=== PATIENT | male | born 1970 | race Caucasian/White ===

== ENCOUNTER 2016-08-24 13:52 | Emergency (ER) | payer MEDICARE ==
[2016-04-03 11:19] VITALS: BMI 25.1
[~2016-08-24 13:52] MED LIST: BUPRENORPHINE HC8 MG SL; CHOLESTYRAMIN4 G/PK1 PO; FLUTICASONE PRO16 GM NASAL; ISOSORBIDE MONO30 M1 PO; LIPITOR40 MG PO; NICODERM C1 PATCH .3 TRANSDERM; PEPCID20 MG PO; PHENADOZ25 MG/SUPP RC; PHENERGAN25 M1 PO; PLAVIX75 MG PO; PROAIR HFA8.5 GM INH; PROTONIX40 MG PO; SINGULAIR10 MG PO; TEMAZEPAM30 MG PO; ZOFRAN8 MG PO
[2016-08-24 15:15] LABS: APPEARANCE CLEAR (CLEAR); BILIRUBIN NEGATIVE (NEGATIVE); COLOR YELLOW (YELLOW); GLUCOSE NEGATIVE (NEGATIVE); KETONE NEGATIVE (NEGATIVE); LEUKOCYTE ESTERASE NEGATIVE (NEGATIVE); NITRITE NEGATIVE (NEGATIVE); PROTEIN NEGATIVE (NEGATIVE); SPECIFIC GRAVITY 1.015 (1.005-1.020); UROBILINOGEN NORMAL (NORMAL)
[2016-08-24 15:28] LABS: BASOPHILS 0.2 % (0.0-2.0); EOSINOPHILS 0.7 % (0-7); HEMATOCRIT 42.4 % (42.0-54.0); HEMOGLOBIN 13.9 g/dL (13.5-17.5); IMMATURE GRANULOCYTES 0.3 % (0-5); MCH 29.7 pg (26.0-34.0); MCHC 32.8 g/dL (31.0-37.0); MCV 90.6 fL (80.0-100.0); MEAN PLATELET VOLUME 9.1 fL (7.4-10.4); MONOCYTES 8.7 % (2-11); NEUTROPHILS 80.1 % (40-80); PLATELET COUNT 324 10x3/uL (130-400); RBC 4.68 10x6/uL (4.20-6.10); RDW 13.4 % (11.5-14.5); WBC 16.8 10x3/uL (4.8-10.8)
[2016-08-24 15:33] LABS: ALBUMIN 4.4 g/dL (3.4-5.0); ALKALINE PHOSPHATASE 104 U/L (46-116); ALT (SGPT) 23 U/L (10-68); AMYLASE - SERUM 73 U/L (25-115); BILIRUBIN - TOTAL 0.51 mg/dL (0.2-1.3); CALC OSMOLALITY 274 mosm/kg (275-300); CALCIUM 9.2 mg/dL (8.5-10.1); CARBON DIOXIDE 26.7 mmol/L (21.0-32.0); CHLORIDE - SERUM 103 mmol/L (98-107); CREATININE - SERUM 0.9 mg/dL (0.6-1.3); GLUCOSE 112 mg/dL (74-106); LIPASE 122 U/L (73-393); POTASSIUM - SERUM 4.6 mmol/L (3.5-5.1); PROTEIN - SERUM 7.5 g/dL (6.4-8.2); SODIUM 137 mmol/L (136-145); UREA NITROGEN 13 mg/dL (7-18); eGFR NON AFRICAN AMERICAN > 90 mL/min (90-120)
== END 2016-08-24 18:23 | disposition home or self-care (01) ==
LOC: D.ER 13:52
PROVIDERS: Emergency Medicine
DX: K29.00 Acute gastritis without bleeding (principal); R11.10 Vomiting, unspecified; K21.9 Gastro-esophageal reflux disease without esophagitis; E87.6 Hypokalemia; F17.200 Nicotine dependence, unspecified, uncomplicated

== ENCOUNTER 2017-05-01 21:28 | Inpatient (IN) | payer MEDICARE ==
[~2017-05-01] VITALS: Ht 177.8 cm; Wt 79.8 kg
[2017-05-01 22:11] LABS: BASOPHILS 0.1 % (0-2); EOSINOPHILS 0.1 % (0-7); HEMATOCRIT 42.6 % (42.0-54.0); HEMOGLOBIN 14.4 g/dL (13.5-17.5); IMMATURE GRANULOCYTES 0.3 % (0-5); LYMPHOCYTES 6.3 % (15-50); MCH 31.3 pg (26.0-34.0); MCHC 33.8 g/dL (31.0-37.0); MCV 92.6 fL (80.0-100.0); MEAN PLATELET VOLUME 9.4 fL (7.4-10.4); NEUTROPHILS 91.2 % (40-80); PLATELET COUNT 374 10x3/uL (130-400); WBC 15.7 10x3/uL (4.8-10.8)
[2017-05-01 22:18] LABS: INR 0.95 (0.85-1.17); PROTIME 12.5 SECONDS (11.6-15.0)
[2017-05-01 22:19] LABS: APTT 27.6 SECONDS (22.8-39.4)
[2017-05-01 22:23] LABS: ALKALINE PHOSPHATASE 130 U/L (46-116); ALT (SGPT) 50 U/L (10-68); BILIRUBIN - TOTAL 0.21 mg/dL (0.2-1.3); CALC OSMOLALITY 288 mosm/kg (275-300); CALCIUM 9.2 mg/dL (8.5-10.1); CHLORIDE - SERUM 111 mmol/L (98-107); CREATININE - SERUM 1.1 mg/dL (0.6-1.3); POTASSIUM - SERUM 3.7 mmol/L (3.5-5.1); PROTEIN - SERUM 7.7 g/dL (6.4-8.2); SODIUM 142 mmol/L (136-145); UREA NITROGEN 19 mg/dL (7-18); eGFR NON AFRICAN AMERICAN 76 mL/min (90-120)
[2017-05-01 22:24] LABS: GLUCOSE 168 mg/dL (74-106)
--- NOTE | 2017-05-02 01:30 | NUR ---
PT ARRIVED ON UNIT VIA WHEELCHAIR ESCORTED BY ER STAFF. ORIENTED TO ROOM AND CALL LIGHT. WILL MONITOR FOR NEEDS.
--- NOTE | 2017-05-02 01:47 | NUR ---
GAVE MORPHINE 4 MG IVP PER PT REQUEST FOR PAIN. WILL RE-ASSESS VIA AUG. SIDE RAILS UP X2 FOR SAFETY.
[2017-05-02 02:02] VITALS: BP 111/79; BMI 25.3
--- NOTE | 2017-05-02 02:30 | NUR ---
STARTED IV FLUIDS AND FLAGYL PER ORDER. ADMISSION ASSESSMENT AND HISTORY COMPLETE. MEDICATION RECONCILLIATION COMPLETE.
--- NOTE | 2017-05-02 04:04 | NUR ---
GAVE ZOFRAN 4 MG IVP PER PT REQUEST FOR NAUSEA.
--- NOTE | 2017-05-02 05:19 | NUR ---
GAVE MORPHINE 4 MG IVP PER PT REQUEST FOR PAIN. WILL MONITOR FOR EFFECTIVENESS.
--- NOTE | 2017-05-02 08:16 | NUR ---
REC'D IN BED AWAKE AND ALERT RESP EVEN AND UNLABORED WITH NO DISTRESS NOTED. CAN EXPRESS NEED AND WANTS. C/O ABD PAIN RATING 7/10 ON PAIN SCALE. ASSESSMENT COMPLETED. C/L IN REACH AT BEDSIDE.
[2017-05-02 08:50] VITALS: BP 119/83
[2017-05-02 10:21] VITALS: Ht 177.8 cm; Wt 79.8 kg
[2017-05-02 12:55] VITALS: BP 116/86
--- NOTE | 2017-05-02 15:02 | NUR ---
WITHOUT DISTRESS.NPO FOR CT.CALL LIGHT IN REACH
--- NOTE | 2017-05-02 19:00 | NUR ---
REPORT RECEIVED AND CARE OF PT ASSUMED. PT LYING IN SUPINE POSITION WATCHING TV. IV IN RIGHT FA PATENT WITH D5 1/2 NS W/20 KCL INFUSING AT 125 ML / HR. WILL MONITOR FOR NEEDS.
[2017-05-02 20:00] VITALS: BP 119/86
--- NOTE | 2017-05-02 21:18 | NUR ---
HS MEDICATIONS GIVEN TO INCLUDE MORPHINE 4 MG IVP, PHENERGAN PO AND RESTORIL PER PRN ORDERS, PER PT REQUEST. WILL CONTINUE TO MONITOR FOR NEEDS.
[2017-05-02 21:22] LABS: APPEARANCE CLEAR (CLEAR); COLOR YELLOW (YELLOW); SPECIFIC GRAVITY 1.005 (1.005-1.020)
[2017-05-02 21:23] LABS: BILIRUBIN NEGATIVE (NEGATIVE); GLUCOSE NEGATIVE (NEGATIVE); KETONE NEGATIVE (NEGATIVE); NITRITE NEGATIVE (NEGATIVE); PROTEIN NEGATIVE (NEGATIVE); UROBILINOGEN NORMAL (NORMAL)
[2017-05-02 21:24] LABS: BACTERIA FEW /hpf (NONE SEEN); RED CELLS - URINE 0-5 /hpf (0-5); WHITE CELLS - URINE OCC /hpf (0-5)
[2017-05-02 21:28] LABS: UDS - AMPHET NEGATIVE QUAL (NEGATIVE); UDS - BARB NEGATIVE QUAL (NEGATIVE); UDS - BENZO POSITIVE QUAL (NEGATIVE); UDS - COCAINE NEGATIVE QUAL (NEGATIVE); UDS - OPIATE POSITIVE QUAL (NEGATIVE); UDS - PCP NEGATIVE QUAL (NEGATIVE); UDS - THC NEGATIVE QUAL (NEGATIVE)
[2017-05-03] VITALS: BP 127/85
--- NOTE | 2017-05-03 00:30 | NUR ---
GAVE MORPHING 4 MG IVP PER PT REQUEST. PER ORDER, NO NARCOTICS PAST 1 AM. NPO AFTER MIDNIGHT.
[2017-05-03 04:00] VITALS: BP 115/76
[2017-05-03 05:52] LABS: BASOPHILS 0.8 % (0-2); EOSINOPHILS 2.5 % (0-7); HEMATOCRIT 39.3 % (42.0-54.0); IMMATURE GRANULOCYTES 0.2 % (0-5); MCH 31.1 pg (26.0-34.0); MCHC 33.1 g/dL (31.0-37.0); MEAN PLATELET VOLUME 9.3 fL (7.4-10.4); MONOCYTES 8.9 % (2-11); NEUTROPHILS 56.6 % (40-80); PLATELET COUNT 281 10x3/uL (130-400); RBC 4.18 10x6/uL (4.20-6.10); RDW 14.3 % (11.5-14.5); WBC 8.5 10x3/uL (4.8-10.8)
[2017-05-03 06:28] LABS: ALKALINE PHOSPHATASE 82 U/L (46-116); AMYLASE - SERUM 54 U/L (25-115); CALCIUM 8.1 mg/dL (8.5-10.1); CARBON DIOXIDE 23.4 mmol/L (21.0-32.0); CHLORIDE - SERUM 112 mmol/L (98-107); LIPASE 100 U/L (73-393); POTASSIUM - SERUM 3.6 mmol/L (3.5-5.1); PROTEIN - SERUM 5.9 g/dL (6.4-8.2); SODIUM 143 mmol/L (136-145)
[2017-05-03 06:30] LABS: ALT (SGPT) 85 U/L (10-68); CALC OSMOLALITY 282 mosm/kg (275-300); CREATININE - SERUM 0.7 mg/dL (0.6-1.3); GLUCOSE 99 mg/dL (74-106); UREA NITROGEN 8 mg/dL (7-18); eGFR NON AFRICAN AMERICAN > 90 mL/min (90-120)
[2017-05-03 07:05] LABS: ERYTHROCYTE SEDIMENTATION RATE 9 mm/hr (0-15)
--- NOTE | 2017-05-03 07:30 | NUR ---
AWAKE AND WITHOUT DISTRESS.NPO FOR PROCEDURES TODAY.CALL LIGHT IN REACH
--- NOTE | 2017-05-03 07:48 | NUR ---
LYING IN BED ON RIGHT SIDE EYES CLOSED RESTING. NO S/SX OF ACUTE DISTRESS NOTED. CALL LIGHT AND PERSONAL ITEMS WITHIN REACH, BED LOW, SR X2. WILL CONTINUE TO MONITOR
--- NOTE | 2017-05-03 09:10 | NUR ---
TRANSPORTED OFF FLOOR VIA W/C BY [facility] FOR GASTRIC SCAN.
--- NOTE | 2017-05-03 10:30 | NUR ---
RECIEVED PT BACK ON FLOOR FROM [facility] VIA W/C.
--- NOTE | 2017-05-03 14:43 | NUR ---
PT C/O NAUSEA AND SHARP ABDOMINAL PAIN. REQUEST ZOFRAN AND PAIN MEDS. ADMINISTERED MORPHINE AND ZOFRAN PER ORDER. WILL CONTINUE TO MONITOR
--- NOTE | 2017-05-03 16:39 | NUR ---
SITTING UP IN BED WATCHING FOOTBALL. DENIES ANY PAIN OR NEEDS. NO S/SX OF ACUTE DISTRESS NOTED. CALL LIGHT AND PERSONAL ITEMS WITHIN REACH, BED LOW AND SR X1. WILL CONTINUE TO MONITOR
--- NOTE | 2017-05-03 19:00 | NUR ---
REPORT RECEIVED AND CARE OF PT ASSUMED. PT LYING IN SUPINE POSITION WATCHING TV. IV IN RIGHT FA PATENT WITH D5 1/2 NS W/ 20 KCL INFUSING AT 125 ML / HR. WILL MONITOR FOR NEEDS.
--- NOTE | 2017-05-03 19:35 | NUR ---
GAVE MORPHINE AND ZOFRAN PER REQUEST FOR PAIN AND NAUSEA, PER PRN ORDERS.
[2017-05-03 20:00] VITALS: BP 131/75
--- NOTE | 2017-05-03 21:19 | NUR ---
HS MEDICATIONS GIVEN. WILL CONTINUE TO MONITOR FOR NEEDS.
--- NOTE | 2017-05-03 21:30 | NUR ---
PT SHOWERED AND ALL BEDDING CHANGED.
--- NOTE | 2017-05-03 23:15 | NUR ---
COLLECTED STOOL AND DELIVERED TO LAB.
[2017-05-04] VITALS: BP 119/92
--- NOTE | 2017-05-04 | NUR ---
GAVE PHENERGAN PO PER REQUEST FOR NAUSEA.
--- NOTE | 2017-05-04 | NUR ---
GAVE RESTORIL CAP PER PT REQUEST, PER PRN ORDER FOR SLEEP.
--- NOTE | 2017-05-04 01:41 | NUR ---
PT RESTING ON EIGHT SIDE WITH EYES CLOSED AND UNLABORED BREATHING.
[2017-05-04 04:00] VITALS: BP 105/78
--- NOTE | 2017-05-04 07:00 | NUR ---
REPORT RECIEVED ASSUMED CARE. PATIENT IN BED WITH IV INTACT. NO COMPLAINTS AT THIS TIME. CALL LIGHT WITHIN REACH.
[2017-05-04 07:39] VITALS: BP 109/73
[2017-05-04 11:29] VITALS: BP 120/83
--- NOTE | 2017-05-04 12:40 | NUR ---
NUTRITION F/U CHART REVIEWED. PT REMAINS NPO. WILL CONTINUE TO MONITOR PT PROGRESS, DIET ADVANCEMENT. RD FOLLOWING
[2017-05-04 16:14] VITALS: BP 120/85
--- NOTE | 2017-05-04 18:55 | NUR ---
PATIENT IN BED WITH IV INTACT. NO COMPLAINTS AT THIS TIME. CALL LIGHT WITHIN REACH.
[2017-05-04 20:00] VITALS: BP 113/80
--- NOTE | 2017-05-04 22:38 | NUR ---
PRN MORPHINE ADMINISTERED AT THIS TIME. PT DENIES ANY OTHER NEEDS. CALL LIGHT IN REACH. WILL CONTINUE TO MONITOR
[2017-05-05 02:39] LABS: COLOR YELLOW (YELLOW)
[2017-05-05 02:40] LABS: APPEARANCE CLEAR (CLEAR); BILIRUBIN NEGATIVE (NEGATIVE); GLUCOSE NEGATIVE (NEGATIVE); KETONE NEGATIVE (NEGATIVE); NITRITE NEGATIVE (NEGATIVE); PROTEIN NEGATIVE (NEGATIVE); RED CELLS - URINE 0-5 /hpf (0-5); UROBILINOGEN NORMAL (NORMAL); WHITE CELLS - URINE 0-5 /hpf (0-5)
[2017-05-05 02:41] LABS: BACTERIA NONE SEEN /hpf (NONE SEEN); EPITHELIAL CELLS NSEEN /hpf (0-5)
[2017-05-05 04:00] VITALS: BP 122/81
[2017-05-05 06:08] LABS: BASOPHILS 0.6 % (0-2); EOSINOPHILS 2.7 % (0-7); HEMATOCRIT 41.8 % (42.0-54.0); HEMOGLOBIN 14.2 g/dL (13.5-17.5); IMMATURE GRANULOCYTES 0.2 % (0-5); LYMPHOCYTES 16.9 % (15-50); MCH 31.4 pg (26.0-34.0); MCV 92.5 fL (80.0-100.0); MEAN PLATELET VOLUME 9.5 fL (7.4-10.4); MONOCYTES 7.6 % (2-11); RBC 4.52 10x6/uL (4.20-6.10); RDW 13.8 % (11.5-14.5)
[2017-05-05 06:29] LABS: PLATELET COUNT 338 10x3/uL (130-400); WBC 12.4 10x3/uL (4.8-10.8)
[2017-05-05 07:03] LABS: ALBUMIN 3.7 g/dL (3.4-5.0); ALKALINE PHOSPHATASE 95 U/L (46-116); ALT (SGPT) 66 U/L (10-68); BILIRUBIN - TOTAL 0.41 mg/dL (0.2-1.3); CALCIUM 8.6 mg/dL (8.5-10.1); CARBON DIOXIDE 19.2 mmol/L (21.0-32.0); CHLORIDE - SERUM 108 mmol/L (98-107); CREATININE - SERUM 0.7 mg/dL (0.6-1.3); GLUCOSE 111 mg/dL (74-106); POTASSIUM - SERUM 3.2 mmol/L (3.5-5.1); PROTEIN - SERUM 7.1 g/dL (6.4-8.2); SODIUM 141 mmol/L (136-145); eGFR NON AFRICAN AMERICAN > 90 mL/min (90-120)
[2017-05-05 07:04] LABS: CALC OSMOLALITY 278 mosm/kg (275-300); UREA NITROGEN 5 mg/dL (7-18)
--- NOTE | 2017-05-05 07:30 | NUR ---
REPORT RECIEVED ASSUMED CARE. PATIENT IN BED WITH IV INTACT. NO COMPLAINTS. CALL LIGHT WITHIN REACH.
[2017-05-05 09:27] VITALS: BP 126/97
--- NOTE | 2017-05-05 10:07 | NUR ---
Patient Name: JANETTE MORENO Admission Status: ER Accout number: [id number] Admission Date: 05-02-2017 : 1970 Admission Diagnosis: Attending: ROCKY DEXTER Current LOS: 3 Anticipated DC Date: Planned Disposition: Home Primary Insurance: MEDICARE A & B Discharge Planning Comments: CM met with patient to assess discharge planning needs. Patient lives home alone independently where he plans to return at discharge. 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 He uses a cane, but denies any other DME. He refuses home health at this time. CM will continue to follow and assist with any other discharge planning needs. PCP: Rakesh Hall ( [phone]) Painter Sign Maintenance: Natalie Davison * Is the patient Alert and Oriented? Yes 0 * How many steps to enter\\exit or inside your home? 0 0 * PCP Rakesh 0 * Pharmacy [facility] 0 * Preadmission Environment Home Alone 0 * ADLs Independent 0 * Equipment Cane 0 * List name and contact numbers for known caregivers / representatives who currently or will assist patient after discharge: "friend" Ashleigh Hall ([phone]) 0 * Community resources currently utilized None 0 * Additional services required to return to the preadmission environment? No 0 * Can the patient safely return to the preadmission environment? Yes 0 * Has this patient been hospitalized within the prior 30 days at any hospital? No 0 Grand Total: 0
[2017-05-05 13:08] VITALS: BP 123/79
--- NOTE | 2017-05-05 13:10 | NUR ---
PATIENT BACK TO ROOM AT THIS TIME. NO COMPLAINTS. IV INTACT. SITTING UP EATING FULL LIQUID DIET. CALL LIGHT WITHIN REACH. VS STABLE.
--- NOTE | 2017-05-05 15:21 | NUR ---
PATIENT RECIEVED MORPHINE IVP SLOWLY OVER 3 MINUTES. IV RED AND IRRITATED AT THIS TIME. EXPLAINED TO PATIENT NEEDED TO START A NEW ONE. VERBALIZED UNDERSTANDING. CALL LIGHT WITHIN REACH.
--- NOTE | 2017-05-05 16:55 | NUR ---
PATIENT IV RESTARTED IN RIGHT WRIST X 1 STICK BY NIKA BRADSHAW. TOLERATED WITH SMALL AMOUNT OF PAIN. IV IN ARM REMOVED EARLIER WITH CATH TIP INTACT. NO COMPLAINTS. CALL LIGHT WITHIN REACH.
[2017-05-05 17:01] VITALS: BP 118/86
--- NOTE | 2017-05-05 18:15 | NUR ---
PATIENT IN BED WITH NO COMPLAINTS. IV INTACT. TOLREATED FULL LIQUIDS WITH NO PROBLEMS. CALL LIGHT WITHIN REACH.
[2017-05-05 20:00] VITALS: BP 113/78
--- NOTE | 2017-05-05 20:15 | NUR ---
AWAKE,ALERT.UP IN ROOM. NO COMPLAINTS AT PRESENT. IV INFUSING TO RIGHT ARM WIHTOUT REDNESS OR EDEMA NOTED. ABD SOFT NONDISTENDED WITH BOWEL PRESENT. CL IN REACH
--- NOTE | 2017-05-06 02:00 | NUR ---
PT RESTING IN BED WITH NO DISTRESS. RESPIRATIONS EVEN AND UNLABORED. SIDE RAILS X 2. BED LOW. CALL LIGHT IN REACH.
--- NOTE | 2017-05-06 05:12 | NUR ---
AWAKE,COMPLIANTS OF ABD PAIN. MORPHINE GIVEN PER ORDERS. NO FUTHER COMPLAINTS VOICED. CL IN REACH
[2017-05-06 06:08] LABS: BASOPHILS 0.6 % (0-2); EOSINOPHILS 3.7 % (0-7); HEMATOCRIT 41.2 % (42.0-54.0); HEMOGLOBIN 13.6 g/dL (13.5-17.5); IMMATURE GRANULOCYTES 0.3 % (0-5); LYMPHOCYTES 21.3 % (15-50); MCH 30.8 pg (26.0-34.0); MCV 93.2 fL (80.0-100.0); MEAN PLATELET VOLUME 9.5 fL (7.4-10.4); MONOCYTES 8.3 % (2-11); NEUTROPHILS 65.8 % (40-80); PLATELET COUNT 313 10x3/uL (130-400); RBC 4.42 10x6/uL (4.20-6.10); WBC 11.4 10x3/uL (4.8-10.8)
[2017-05-06 06:43] LABS: ALBUMIN 3.3 g/dL (3.4-5.0); ALKALINE PHOSPHATASE 86 U/L (46-116); ALT (SGPT) 48 U/L (10-68); BILIRUBIN - TOTAL 0.46 mg/dL (0.2-1.3); CALC OSMOLALITY 275 mosm/kg (275-300); CALCIUM 8.6 mg/dL (8.5-10.1); CARBON DIOXIDE 19.7 mmol/L (21.0-32.0); CHLORIDE - SERUM 109 mmol/L (98-107); CREATININE - SERUM 0.8 mg/dL (0.6-1.3); GLUCOSE 104 mg/dL (74-106); POTASSIUM - SERUM 3.5 mmol/L (3.5-5.1); PROTEIN - SERUM 6.5 g/dL (6.4-8.2); SODIUM 140 mmol/L (136-145); UREA NITROGEN 5 mg/dL (7-18); eGFR NON AFRICAN AMERICAN > 90 mL/min (90-120)
--- NOTE | 2017-05-06 07:00 | NUR ---
PT REC'D FROM [facility]. RESTING IN BED WATCHING TV. AAOX4. RATING CURRENT PAIN IN ABD 11/15. PT AWARE THAT IT IS NOT TIME FOR PAIN MEDS. BOWEL SOUNDS HYPERACTIVE X4 QUADS. PT STATES HE HAS ALREADY HAD A BM, DIARRHEA, THIS MORNING. PIV TO R FA FREE OF REDNESS AND SWELLING. BED LOW, CALL LIGHT IN REACH, DENIES NEEDS. CPOC.
[2017-05-06 08:04] VITALS: BP 112/89
[2017-05-06 12:22] VITALS: BP 126/82
[2017-05-06 16:09] VITALS: BP 108/74
[2017-05-06 20:00] VITALS: BP 99/72
--- NOTE | 2017-05-06 22:10 | NUR ---
PRN MORPHINE AND RESTORIL ADMINISTERED AT THIS TIME FOR PAIN AND SLEEP AID. PT DENIES ANY OTHER NEEDS. SCD'S ON, CALL LIGHT IN REACH. WILL CONTINUE WITH PLAN OF CARE.
[2017-05-07] VITALS: BP 115/70
--- NOTE | 2017-05-07 02:48 | NUR ---
PRN MORPHINE ADMINISTERED AT THIS TIME FOR PAIN IN ABDOMEN. CALL LIGHT IN REACH.
[2017-05-07 04:00] VITALS: BP 107/77
[2017-05-07 05:18] LABS: BASOPHILS 0.5 % (0-2); EOSINOPHILS 4.9 % (0-7); HEMATOCRIT 39.2 % (42.0-54.0); HEMOGLOBIN 12.8 g/dL (13.5-17.5); IMMATURE GRANULOCYTES 0.2 % (0-5); LYMPHOCYTES 21.1 % (15-50); MCH 30.5 pg (26.0-34.0); MCHC 32.7 g/dL (31.0-37.0); MCV 93.3 fL (80.0-100.0); MEAN PLATELET VOLUME 9.6 fL (7.4-10.4); MONOCYTES 10.1 % (2-11); NEUTROPHILS 63.2 % (40-80); PLATELET COUNT 280 10x3/uL (130-400); RDW 13.9 % (11.5-14.5); WBC 8.8 10x3/uL (4.8-10.8)
[2017-05-07 05:43] LABS: ALBUMIN 3.3 g/dL (3.4-5.0); ALKALINE PHOSPHATASE 84 U/L (46-116); ALT (SGPT) 37 U/L (10-68); CALC OSMOLALITY 276 mosm/kg (275-300); CALCIUM 8.8 mg/dL (8.5-10.1); CARBON DIOXIDE 22.2 mmol/L (21.0-32.0); CHLORIDE - SERUM 107 mmol/L (98-107); GLUCOSE 100 mg/dL (74-106); POTASSIUM - SERUM 3.5 mmol/L (3.5-5.1); PROTEIN - SERUM 6.2 g/dL (6.4-8.2); SODIUM 140 mmol/L (136-145); eGFR NON AFRICAN AMERICAN 85 mL/min (90-120)
[2017-05-07 05:44] LABS: UREA NITROGEN 7 mg/dL (7-18)
--- NOTE | 2017-05-07 07:00 | NUR ---
REPORT RECIEVED ASSUMED CARE. PATIENT IN BED WITH IV INTACT. NO COMPLAINTS. CALL LIGHT WITHIN REACH.
[2017-05-07 08:16] VITALS: BP 110/87
[2017-05-07 12:14] VITALS: BP 115/76
--- NOTE | 2017-05-07 12:40 | NUR ---
NUTRITION F/U DIET ADVANCED TO ADA SOFT, HI FIBER. 100% INTAKE RECORDED AT BREAKFAST. WILL CONTINUE TO PROVIDE DIET, MONITOR PO INTAKE. RD FOLLOWING
[2017-05-07] MEDS ORDERED: MACRODANTIN50 MG PO (13:28)
[2017-05-07] MEDS ORDERED: FLAGYL500 MG PO (13:29)
--- NOTE | 2017-05-07 13:43 | NUR ---
PATIENT DISCHARGING HOME TODAY, PATIENT STATED THAT HE HAS A FRIEND WHO WILL TAKE HIM HOME. IMM SERVED AND PATIENT DENIED ANY HH OR DME NEEDS AT THIS TIME.
--- NOTE | 2017-05-07 15:40 | NUR ---
PATIENT RECIEVED DC INSTRUCTION. VERBALIZED UNDERSTANDING. IV REMOVED WITH CATH TIP INTACT. NO QUESTIONS AT THIS TIME. CALL LIGHT WITHIN REACH.
== END 2017-05-07 16:35 | disposition home or self-care (01) | DRG 392 ==
LOC: D.ER 21:28 → D.MS 05-02 00:53
PROVIDERS: Emergency Medicine; Family Medicine; Internal Medicine Gastroenterology; ADMIT Family Medicine
PROC: 0DB78ZX Excision of Stomach, Pylorus, Via Natural or Artificial Opening Endoscopic, Diagnostic (ICD-10-PCS; 2017-05-05)
PROC: 0DBP8ZX Excision of Rectum, Via Natural or Artificial Opening Endoscopic, Diagnostic (ICD-10-PCS; 2017-05-05)
PROC: 0DBN8ZX Excision of Sigmoid Colon, Via Natural or Artificial Opening Endoscopic, Diagnostic (ICD-10-PCS; 2017-05-05)
PROC: 0DB38ZX Excision of Lower Esophagus, Via Natural or Artificial Opening Endoscopic, Diagnostic (ICD-10-PCS; principal; 2017-05-05 13:30)
DX: K58.0 Irritable bowel syndrome with diarrhea (principal); N39.0 Urinary tract infection, site not specified; R30.0 Dysuria; K20.9 Esophagitis, unspecified; K29.70 Gastritis, unspecified, without bleeding; K44.9 Diaphragmatic hernia without obstruction or gangrene; K29.80 Duodenitis without bleeding; K22.2 Esophageal obstruction

== ENCOUNTER → 2017-09-28 13:49 | Outpatient (CLI) | payer MEDICARE ==
[2017-05-02 10:21] VITALS: BMI 25.2
[~2017-09-28 13:49] MED LIST changes: +FLAGYL500 MG PO; +MACRODANTIN50 MG PO
== END | disposition home or self-care (01) ==
LOC: D.MRI 09-25 10:30
DX: M54.16 Radiculopathy, lumbar region (principal); M50.30 Other cervical disc degeneration, unspecified cervical region

== ENCOUNTER 2017-10-24 00:01 | Emergency (ER) | payer MEDICARE ==
[2017-05-02 10:21] VITALS: BMI 25.2
[2017-10-24 01:02] LABS: APPEARANCE CLEAR (CLEAR); BILIRUBIN NEGATIVE (NEGATIVE); COLOR YELLOW (YELLOW); GLUCOSE NEGATIVE (NEGATIVE); KETONE NEGATIVE (NEGATIVE); NITRITE NEGATIVE (NEGATIVE); PROTEIN NEGATIVE (NEGATIVE); SPECIFIC GRAVITY 1.015 (1.005-1.020); UROBILINOGEN NORMAL (NORMAL)
[2017-10-24 01:03] LABS: BASOPHILS 0.5 % (0-2); EOSINOPHILS 2.8 % (0-7); HEMATOCRIT 40.2 % (42.0-54.0); HEMOGLOBIN 13.4 g/dL (13.5-17.5); IMMATURE GRANULOCYTES 0.5 % (0-5); LYMPHOCYTES 19.6 % (15-50); MCH 31.1 pg (26.0-34.0); MCHC 33.3 g/dL (31.0-37.0); MCV 93.3 fL (80.0-100.0); MEAN PLATELET VOLUME 8.8 fL (7.4-10.4); MONOCYTES 10.7 % (2-11); NEUTROPHILS 65.9 % (40-80); RBC 4.31 10x6/uL (4.20-6.10); RDW 13.4 % (11.5-14.5); WBC 13.2 10x3/uL (4.8-10.8)
[2017-10-24 01:08] LABS: PLATELET COUNT 357 10x3/uL (130-400)
[2017-10-24 01:12] LABS: UDS - AMPHET NEGATIVE QUAL (NEGATIVE); UDS - BARB NEGATIVE QUAL (NEGATIVE); UDS - BENZO NEGATIVE QUAL (NEGATIVE); UDS - COCAINE NEGATIVE QUAL (NEGATIVE); UDS - OPIATE NEGATIVE QUAL (NEGATIVE); UDS - PCP NEGATIVE QUAL (NEGATIVE); UDS - THC NEGATIVE QUAL (NEGATIVE)
[2017-10-24 01:38] LABS: ALKALINE PHOSPHATASE 100 U/L (46-116); ALT (SGPT) 80 U/L (10-68); CALC OSMOLALITY 283 mosm/kg (275-300); CARBON DIOXIDE 23.6 mmol/L (21.0-32.0); CHLORIDE - SERUM 108 mmol/L (98-107); CREATININE - SERUM 1.1 mg/dL (0.6-1.3); GLUCOSE 108 mg/dL (74-106); POTASSIUM - SERUM 3.3 mmol/L (3.5-5.1); SODIUM 141 mmol/L (136-145); UREA NITROGEN 17 mg/dL (7-18); eGFR NON AFRICAN AMERICAN 75 mL/min (90-120)
== END 2017-10-24 03:32 | disposition home or self-care (01) ==
LOC: D.ER 00:01
PROVIDERS: Family Medicine; Nurse Practitioner Family
DX: K52.9 Noninfective gastroenteritis and colitis, unspecified (principal); K21.9 Gastro-esophageal reflux disease without esophagitis; I50.9 Heart failure, unspecified

== ENCOUNTER 2017-11-01 16:37 | Emergency (ER) | payer MEDICARE ==
[2017-05-02 10:21] VITALS: BMI 25.2
== END 2017-11-01 19:17 | disposition home or self-care (01) ==
LOC: D.ER 16:37
DX: M79.652 Pain in left thigh (principal); M62.552 Muscle wasting and atrophy, not elsewhere classified, left thigh; M54.16 Radiculopathy, lumbar region; F17.200 Nicotine dependence, unspecified, uncomplicated; K21.9 Gastro-esophageal reflux disease without esophagitis; I50.9 Heart failure, unspecified

== ENCOUNTER 2018-01-31 13:49 | Emergency (ER) | payer MEDICARE ==
[~2018-01-31] VITALS: Ht 177.8 cm; Wt 72.7 kg
[2018-01-31 13:52] VITALS: Ht 177.8 cm; Wt 72.7 kg
[2018-01-31] MEDS ORDERED: ROBAXIN-750750 MG PO (14:50)
[2018-01-31] MEDS ORDERED: ZOFRAN8 MG PO (14:50)
[2018-01-31] MEDS ORDERED: DICLOFENAC SODI50 MG PO (14:50)
[2018-01-31 15:22] VITALS: BP 115/58
== END 2018-01-31 15:26 | disposition home or self-care (01) ==
LOC: D.ER 13:49
DX: M79.662 Pain in left lower leg (principal); M79.1 Myalgia; R11.2 Nausea with vomiting, unspecified; I10 Essential (primary) hypertension; I50.9 Heart failure, unspecified; F17.200 Nicotine dependence, unspecified, uncomplicated

== ENCOUNTER 2018-06-11 22:21 | Emergency (ER) | payer MEDICARE ==
[~2018-06-11] VITALS: Ht 177.8 cm; Wt 77.1 kg
[~2018-06-11 22:21] MED LIST changes: +DICLOFENAC SODI50 MG PO; +ROBAXIN-750750 MG PO
[2018-06-11 22:32] VITALS: Ht 177.8 cm; Wt 77.1 kg
[2018-06-12] MEDS ORDERED: RESTORIL15 MG PO (00:10)
[2018-06-12] MEDS ORDERED: ZPAK PO (00:11)
[2018-06-12 00:53] VITALS: BP 135/82
== END 2018-06-12 01:00 | disposition home or self-care (01) ==
LOC: D.ER 22:21
DX: Z76.0 Encounter for issue of repeat prescription (principal); J06.9 Acute upper respiratory infection, unspecified; I10 Essential (primary) hypertension; I50.9 Heart failure, unspecified

== ENCOUNTER 2018-09-30 21:02 | Emergency (ER) | payer MEDICARE ==
[~2018-09-30] VITALS: Ht 177.8 cm; Wt 77.3 kg
[~2018-09-30 21:02] MED LIST changes: +RESTORIL15 MG PO; +ZPAK PO
[2018-09-30 21:12] VITALS: Ht 177.8 cm; Wt 77.3 kg
[2018-09-30] MEDS ORDERED: PLAVIX75 MG PO (21:13)
[2018-09-30] MEDS ORDERED: COREG 3.1253.125 MG PO (21:14)
[2018-09-30] MEDS ORDERED: CARAFATE1 G PO (21:15)
[2018-09-30] MEDS ORDERED: ISOSORBIDE MONO30 M1 PO (21:15)
[2018-09-30] MEDS ORDERED: LEXAPRO5 MG PO (21:15)
[2018-09-30] MEDS ORDERED: SYMBICORT 16010.2 GM INH (21:16)
[2018-09-30 21:47] LABS: BASOPHILS 0.5 % (0-2); EOSINOPHILS 1.5 % (0-7); HEMATOCRIT 43.5 % (42.0-54.0); HEMOGLOBIN 14.7 g/dL (13.5-17.5); IMMATURE GRANULOCYTES 0.3 % (0-5); LYMPHOCYTES 11.1 % (15-50); MCH 31.4 pg (26.0-34.0); MCHC 33.8 g/dL (31.0-37.0); MCV 92.9 fL (80.0-100.0); MEAN PLATELET VOLUME 9.3 fL (7.4-10.4); MONOCYTES 3.7 % (2-11); NEUTROPHILS 82.9 % (40-80); PLATELET COUNT 337 10x3/uL (130-400); RBC 4.68 10x6/uL (4.20-6.10); WBC 11.5 10x3/uL (4.8-10.8)
[2018-09-30 21:59] LABS: ALBUMIN 4.1 g/dL (3.4-5.0); ALKALINE PHOSPHATASE 107 U/L (46-116); ALT (SGPT) 43 U/L (10-68); BILIRUBIN - TOTAL 0.28 mg/dL (0.2-1.3); C-REACTIVE PROTEIN < 0.2 mg/dL (0.0-0.9); CALC OSMOLALITY 283 mosm/kg (275-300); CALCIUM 8.7 mg/dL (8.5-10.1); CARBON DIOXIDE 20.5 mmol/L (21.0-32.0); CHLORIDE - SERUM 109 mmol/L (98-107); CREATININE - SERUM 1.2 mg/dL (0.6-1.3); GLUCOSE 91 mg/dL (74-106); PROTEIN - SERUM 7.5 g/dL (6.4-8.2); SODIUM 142 mmol/L (136-145); UREA NITROGEN 15 mg/dL (7-18); eGFR NON AFRICAN AMERICAN 68 mL/min (90-120)
[2018-09-30 22:48] LABS: ERYTHROCYTE SEDIMENTATION RATE 7 mm/hr (0-20)
[2018-10-01 01:07] VITALS: BP 111/75
== END 2018-10-01 01:08 | disposition home or self-care (01) ==
LOC: D.ER 21:02
PROVIDERS: Emergency Medicine
DX: R10.9 Unspecified abdominal pain (principal); I25.10 Atherosclerotic heart disease of native coronary artery without angina pectoris; E11.9 Type 2 diabetes mellitus without complications

== ENCOUNTER 2018-10-30 18:15 | Emergency (ER) | payer MEDICARE ==
[~2018-10-30] VITALS: Ht 177.8 cm; Wt 68.6 kg
[~2018-10-30 18:15] MED LIST changes: +CARAFATE1 G PO; +COREG 3.1253.125 MG PO; +LEXAPRO5 MG PO; +SYMBICORT 16010.2 GM INH
[2018-10-30 18:21] VITALS: Ht 177.8 cm; Wt 68.6 kg
[2018-10-30] MEDS ORDERED: MS CONTIN30 MG (18:24)
[2018-10-30] MEDS ORDERED: PERCOCET 10-321 EAC1 (18:24)
[2018-10-30 19:04] LABS: APPEARANCE CLEAR (CLEAR); BASOPHILS 0.5 % (0-2); BILIRUBIN NEGATIVE (NEGATIVE); COLOR YELLOW (YELLOW); EOSINOPHILS 3.2 % (0-7); GLUCOSE NEGATIVE (NEGATIVE); HEMATOCRIT 44.1 % (42.0-54.0); HEMOGLOBIN 15.2 g/dL (13.5-17.5); IMMATURE GRANULOCYTES 0.5 % (0-5); KETONE NEGATIVE (NEGATIVE); LYMPHOCYTES 22.8 % (15-50); MCH 31.6 pg (26.0-34.0); MCHC 34.5 g/dL (31.0-37.0); MCV 91.7 fL (80.0-100.0); MEAN PLATELET VOLUME 9.2 fL (7.4-10.4); MONOCYTES 5.2 % (2-11); NEUTROPHILS 67.8 % (40-80); NITRITE NEGATIVE (NEGATIVE); PLATELET COUNT 318 10x3/uL (130-400); PROTEIN NEGATIVE (NEGATIVE); RBC 4.81 10x6/uL (4.20-6.10); RDW 13.5 % (11.5-14.5); SPECIFIC GRAVITY 1.015 (1.005-1.020); UROBILINOGEN NORMAL (NORMAL)
[2018-10-30 19:14] LABS: ALBUMIN 4.1 g/dL (3.4-5.0); ALKALINE PHOSPHATASE 118 U/L (46-116); ALT (SGPT) 40 U/L (10-68); BILIRUBIN - TOTAL 0.23 mg/dL (0.2-1.3); CALC OSMOLALITY 286 mosm/kg (275-300); CARBON DIOXIDE 17.6 mmol/L (21.0-32.0); CHLORIDE - SERUM 109 mmol/L (98-107); CREATININE - SERUM 0.8 mg/dL (0.6-1.3); POTASSIUM - SERUM 3.5 mmol/L (3.5-5.1); SODIUM 142 mmol/L (136-145); UREA NITROGEN 18 mg/dL (7-18); eGFR NON AFRICAN AMERICAN > 90 mL/min (90-120)
[2018-10-30 19:15] LABS: GLUCOSE 141 mg/dL (74-106)
[2018-10-30 19:18] LABS: AMYLASE - SERUM 89 U/L (25-115); LIPASE 189 U/L (73-393); TROPONIN-I < 0.017 ng/mL (0.000-0.060)
[2018-10-30] MEDS ORDERED: FLAGYL500 MG PO (20:23)
[2018-10-30 20:31] VITALS: BP 117/91
== END 2018-10-30 20:31 | disposition home or self-care (01) ==
LOC: D.ER 18:15
PROVIDERS: Family Medicine
DX: R10.9 Unspecified abdominal pain (principal); Z87.19 Personal history of other diseases of the digestive system

== ENCOUNTER 2019-02-27 12:35 | Emergency (ER) | payer MEDICARE ==
[~2019-02-27] VITALS: Ht 177.8 cm; Wt 70.5 kg
[~2019-02-27 12:35] MED LIST changes: +MS CONTIN30 MG; +PERCOCET 10-321 EAC1
[2019-02-27 12:39] VITALS: Ht 177.8 cm; Wt 70.5 kg
[2019-02-27] MEDS ORDERED: RESTORIL15 MG PO (16:23)
[2019-02-27 16:29] VITALS: BP 117/91
== END 2019-02-27 16:30 | disposition home or self-care (01) ==
LOC: D.ER 12:35
DX: M79.604 Pain in right leg (principal); G25.81 Restless legs syndrome

== ENCOUNTER 2019-05-28 13:37 | Emergency (ER) | payer MEDICARE ==
[~2019-05-28] VITALS: Ht 177.8 cm; Wt 72.7 kg
[2019-05-28 13:42] VITALS: Ht 177.8 cm; Wt 72.7 kg
[2019-05-28 14:52] LABS: BASOPHILS 0.9 % (0-2); EOSINOPHILS 2.1 % (0-7); HEMATOCRIT 47.5 % (42.0-54.0); HEMOGLOBIN 15.7 g/dL (13.5-17.5); IMMATURE GRANULOCYTES 0.2 % (0-5); LYMPHOCYTES 23.3 % (15-50); MCH 30.6 pg (26.0-34.0); MCHC 33.1 g/dL (31.0-37.0); MCV 92.6 fL (80.0-100.0); MEAN PLATELET VOLUME 8.4 fL (7.4-10.4); NEUTROPHILS 67.5 % (40-80); RBC 5.13 10x6/uL (4.20-6.10); RDW 13.5 % (11.5-14.5); WBC 8.7 10x3/uL (4.8-10.8)
[2019-05-28 14:59] LABS: PLATELET COUNT 416 10x3/uL (130-400)
[2019-05-28 15:00] LABS: APPEARANCE CLEAR (CLEAR); BILIRUBIN NEGATIVE (NEGATIVE); COLOR YELLOW (YELLOW); GLUCOSE NEGATIVE (NEGATIVE); KETONE NEGATIVE (NEGATIVE); NITRITE NEGATIVE (NEGATIVE); PROTEIN NEGATIVE (NEGATIVE); UROBILINOGEN NORMAL (NORMAL)
[2019-05-28 15:01] LABS: CALC OSMOLALITY 276 mosm/kg (275-300); CALCIUM 9.2 mg/dL (8.5-10.1); CARBON DIOXIDE 20.5 mmol/L (21.0-32.0); CHLORIDE - SERUM 106 mmol/L (98-107); CREATININE - SERUM 0.9 mg/dL (0.6-1.3); POTASSIUM - SERUM 4.2 mmol/L (3.5-5.1); SODIUM 139 mmol/L (136-145); UREA NITROGEN 12 mg/dL (7-18); eGFR NON AFRICAN AMERICAN > 90 mL/min (90-120)
[2019-05-28 15:04] LABS: GLUCOSE 79 mg/dL (74-106)
[2019-05-28 15:07] LABS: ALBUMIN 4.3 g/dL (3.4-5.0); ALKALINE PHOSPHATASE 106 U/L (46-116); ALT (SGPT) 81 U/L (10-68); AMYLASE - SERUM 85 U/L (25-115); BILIRUBIN - TOTAL 0.26 mg/dL (0.2-1.3); LIPASE 140 U/L (73-393); PROTEIN - SERUM 7.5 g/dL (6.4-8.2)
[2019-05-28] MEDS ORDERED: RESTORIL15 MG PO (17:10)
[2019-05-28 17:12] VITALS: BP 122/84
== END 2019-05-28 17:12 | disposition home or self-care (01) ==
LOC: D.ER 13:37
PROVIDERS: Family Medicine
DX: R10.9 Unspecified abdominal pain (principal); R19.7 Diarrhea, unspecified; J44.9 Chronic obstructive pulmonary disease, unspecified; I50.9 Heart failure, unspecified; Z72.0 Tobacco use

== ENCOUNTER 2019-06-25 19:06 | Emergency (ER) | payer MEDICARE ==
[~2019-06-25] VITALS: Ht 177.8 cm; Wt 72.7 kg
[2019-06-25 19:30] VITALS: BP 134/75; Ht 177.8 cm; Wt 72.7 kg
[2019-06-25] MEDS ORDERED: COREG 3.1253.125 MG PO (19:32)
[2019-06-25] MEDS ORDERED: TEMAZEPAM30 MG PO ×3 (19:34→19:54)
[2019-06-25] MEDS ORDERED: ZETIA10 MG PO (19:34)
== END 2019-06-25 20:23 | disposition home or self-care (01) ==
LOC: D.ER 19:06
DX: Z76.0 Encounter for issue of repeat prescription (principal); I13.0 Hypertensive heart and chronic kidney disease with heart failure and stage 1 through stage 4 chronic kidney disease, or unspecified chronic kidney disease; F17.210 Nicotine dependence, cigarettes, uncomplicated; N18.9 Chronic kidney disease, unspecified; I50.9 Heart failure, unspecified; J44.9 Chronic obstructive pulmonary disease, unspecified; K51.90 Ulcerative colitis, unspecified, without complications; E78.5 Hyperlipidemia, unspecified